=== PATIENT | female | born 1990 | race Caucasian/White ===

== ENCOUNTER 2017-07-05 08:59 | Inpatient (IN) | payer OTHER ==
--- NOTE | 2017-07-05 09:31 | PCM.LDHP ---
<Elmo Dinh L - Last Filed: 07/05/17 09:40> L&D History of Present Illness - General Admit Problem/Dx: Admission Diagnosis/Problem Admission Diagnosis/Problem DATE OF ADMISSION: 07/05/2017 ADMISSION DIAGNOSES: A 40 and 2/7ths weeks, elective induction of labor HISTORY OF PRESENT ILLNESS: This patient is a 26 year old, 3, para 1-0-1-1 female who was admitted at 40 and 2/7ths weeks gestational age with an MARY of 07/03/2017 for elective induction of labor. Uneventful with no complaints today. 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 The patient has an MARY of 07/05/2017 based on a certain LMP of 09/26/2016 and confirmed by early U/S dating. Consistent with 21 week U/S performed on 02/16/2017. The patient was first seen for care on 12/09/2016 at 10 and 5/7ths weeks gestational age. She was seen on a regular basis by Dr. Mcknight throughout the duration of the . She started with a weight of 147 pounds at her first visit and last recorded weight of 187 pounds, resulting in a weight gain of approximately 40 pounds. Her vital signs have remained stable throughout the and fundal height growth has been appropriate. She plans on breast feeding. She is group B Strep negative. PAST OBSTETRIC HISTORY: 1. Female born on [birth year] at 40 weeks gestational age - 7 pounds, 8 ounces - via normal spontaneous vaginal delivery with the use of an epidural. 2. Therapeutic in 11/2013 LABORATORY TESTING: Initial testing shows blood to be B positive with a negative antibody screen. Hemoglobin at first visit was 12.4 g/dL and platelets at 198,000. Rubella titer showed immunity. RPR nonreactive. HIV and Hepatitis B assays were both negative. Chlamydia and gonorrhea assays were both negative. Urine culture was normal. Second trimester testing showed hemoglobin to be 12.8 g/dL and platelets at 179,000. Her 1 hour GGT was normal at 91. Group B Strep screen was negative. ALLERGIES: Macrobid - resulting in hives CURRENT MEDICATIONS: 1. vitamins x1 daily 2. Iron supplements x1 daily PAST MEDICAL HISTORY: 1. Vaginal delivery x1 PAST SURGICAL HISTORY: 1. Corrective strabismus surgery x3 FAMILY HISTORY: Mother has a history of endometrial cancer. Father is healthy. MGF has a history of colorectal cancer. SOCIAL HISTORY: The patient is . is Guy Yu. They live in [place], [place]. 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 She does not use alcohol, drugs, or tobacco. REVIEW OF SYSTEMS: GENERAL: Patient doing well and states this has been an easy . Baby has been very active. SKIN: Negative. CARDIOVASCULAR: No chest pain or exercise intolerance. RESPIRATORY: No shortness of breath or cough. BREASTS: Changes associated with . Patient plans to breast feed. GASTROINTESTINAL: Some constipation throughout , but not experiencing any today. GENITOURINARY: Changes associated with . MUSCULOSKELETAL: Negative. NEUROLOGIC: Negative. PHYSICAL EXAMINATION: GENERAL: Patient is a well-developed, well-nourished, pleasant female who appears her stated age. She is in no acute distress. VITAL SIGNS: Blood pressures on last evaluation in the clinic were 122/66. heart rate was 150 bpm. Height is 5 feet, 4 inches. Weight is 187 after a weight gain of 40 pounds throughout the . SKIN: Warm and dry without lesions. HEENT, NECK, BACK: Within normal limits. CARDIOVASCULAR: Regular rate and rhythm without murmurs. RESPIRATORY: Clear with good breath sounds in all lung [place]. BREASTS: Deferred at this time. ABDOMEN: Protuberant with with appropriate fundal height. Baby is in vertex presentation by Jacky maneuvers. GENITAL: Shows cervix to be 2 cm, 30% effaced, soft, -4 station, and posterior position. EXTREMITIES: Shows trace edema to be present. NEUROLOGIC: Grossly within normal limits. ASSESSMENT: 1. A 40 and 2/7ths week intrauterine who presents to L and D for elective induction of labor. 2. Rubella titer shows immunity. 3. Group B Strep screen is negative. 4. The patient plans to breastfeed. PLAN: 1. Cytotec with placement of a lainez bulb to enhance cervical dilation, followed by artificial rupture of membranes and Pitocin induction of labor. 2. Notify anesthesia for placement of an epidural when desired by the patient. 3. Support decision. 07/05/17 09:41 - Related Data Allergies/Adverse Reactions: Allergies Allergy/AdvReac Type Severity Reaction Status Date / Time No Known Allergies Allergy Verified 07/05/17 09:08 H&P Review of Systems - Review of Systems: Review Of Systems: See Below L&D Exam - Exam Exam: See Below - Vital Signs Weight: 84.822 kg Problem List Initiated/Reviewed/Updated: Yes <Ramon Yu - Last Filed: 07/05/17 10:31> L&D History of Present Illness - General Date of Service: 07/05/17 Admit Problem/Dx: Patient Status Order with Admit Dx/Problem 07/05/17 10:17 Patient Status [ADT] Routine Admission Diagnosis/Problem Admission Diagnosis/Problem H&P Review of Systems - Review of Systems: Review Of Systems: See Below General: Denies: Fever, Chills, Malaise, Weakness, Fatigue HEENT: Denies: Sinus Congestion, Sore Throat, Visual Changes Pulmonary: Denies: Shortness of Breath, Wheezing Cardiovascular: Denies: Chest Pain, Palpitations Gastrointestinal: Reports: Constipation. Denies: Abdominal Pain, Diarrhea, Nausea, Vomiting Genitourinary: Denies: Dysuria, Frequency, Burning, Pain Musculoskeletal: Reports: Back Pain. Denies: Joint Pain, Muscle Pain Psychiatric: Denies: Depression Neurological: Denies: Headache Hematologic/Lymphatic: Denies: Anemia L&D Exam - Exam Exam: See Below - OB Specific Contraction Duration (sec): 0 Contraction Frequency (min): 0 Movement: Active Heart Tones: Present Heart Tones per Min: 125 (Has a 15 x 15 accelerations, no decelerations) Heart Rate (FHR) Variability: Moderate (6-25 bmp) Presentation: Vertex - Pugh Score Pugh Score Cervix Position: Posterior Pugh Score Consistency: Soft Pugh Score Effacement: 0-30% Pugh Score Dilation: 1-2 cm Pugh Score Infant's Station: -3 Pugh Score Total: 3 - Exam General: Alert, Oriented HEENT: Conjunctiva Clear, EOMI Neck: Supple, Trachea Midline Lungs: Clear to Auscultation, Normal Respiratory Effort Cardiovascular: Regular Rate, Regular Rhythm GI/Abdominal Exam: Soft, Non-Tender, No Distention. No: Guarding, Rebound Genitourinary: Normal external exam Back Exam: Normal Inspection. No: CVA Tenderness (L), CVA Tenderness (R) Extremities: Normal Inspection, No Pedal Edema Skin: Warm, Dry, Intact Psychiatric: Alert, Normal Affect, Normal Mood - Problem List (1) 40 weeks gestation of SNOMED Code(s): 35750697 ICD Code: Z3A.40 - 40 WEEKS GESTATION OF Status: Acute Current Visit: Yes Problem List Initiated/Reviewed/Updated: Yes Orders Last 24hrs: Active Orders 24 hr Category Date Time Status Patient Status [ADT] Routine ADT 07/05/17 10:17 Active Activity as Tolerated [RC] PFP Care 07/05/17 10:17 Active Communication Order [RC] ASDIRECTED Care 07/05/17 10:17 Active Heart Tones [RC] ASDIRECTED Care 07/05/17 10:17 Active Notify Provider [RC] PFP Care 07/05/17 10:17 Active Notify Provider [RC] PRN Care 07/05/17 10:17 Active Peripheral IV Care [RC] . DIRECTED Care 07/05/17 10:17 Active Vital Signs [RC] PER UNIT ROUTINE Care 07/05/17 10:17 Active Regular Diet [DIET] Diet 07/05/17 Breakfast Active CBC WITH AUTO DIFF [HEME] Stat Lab 07/05/17 10:17 Ordered Lactated Ringers [Ringers, Lactated] 1,000 ml Med 07/05/17 10:30 Active IV ASDIRECTED Misoprostol [Cytotec] Med 07/05/17 10:30 Active 25 mcg VAG Q3H Oxytocin/Lactated Ringers [Pitocin in LR 10 Units/1,000 Med 07/05/17 10:30 Active ML] 10 unit in 1,000 ml IV .CONTINUOUS Oxytocin/Lactated Ringers [Pitocin in LR 10 Units/1,000 Med 07/05/17 10:30 Active ML] 10 unit in 1,000 ml IV TITRATE Sodium Chloride 0.9% [Saline Flush] Med 07/05/17 10:17 Active 10 ml FLUSH ASDIRECTED PRN Electronic Heart Tones Ext w TOCO [WOMSER] Oth 07/05/17 10:17 Ordered Routine Electronic Heart Tones Internal [WOMSER] Per Unit Oth 07/05/17 10:17 Ordered Routine Peripheral IV Insertion Adult [OM.PC] Routine Oth 07/05/17 10:17 Ordered Resuscitation Status Routine Resus Stat 07/05/17 10:17 Ordered Medication Orders Lactated Ringer's (Ringers, Lactated) 1,000 mls @ 100 mls/hr IV ASDIRECTED GABRIEL Oxytocin/Lactated Ringer's (Pitocin In Lr 10 Units/1,000 Ml) 10 unit in 1,000 mls @ 12 mls/hr IV TITRATE GABRIEL; Protocol Oxytocin/Lactated Ringer's (Pitocin In Lr 10 Units/1,000 Ml) 10 unit in 1,000 mls @ 500 mls/hr IV .CONTINUOUS GABRIEL Misoprostol (Cytotec) 25 mcg VAG Q3H GABRIEL Sodium Chloride (Saline Flush) 10 ml FLUSH ASDIRECTED PRN PRN Reason: Keep Vein Open Assessment/Plan Comment:: ASSESSMENT: 1. A 40 and 2/7ths week intrauterine who presents to L and D for elective induction of labor. 2. Rubella titer shows immunity. 3. Group B Strep screen is negative. 4. The patient plans to breastfeed. PLAN: 1. Cytotec with placement of a lainez bulb to enhance cervical dilation, followed by artificial rupture of membranes and Pitocin induction of labor. 2. Notify anesthesia for placement of an epidural when desired by the patient. 3. Support decision. I have seen and evaluated the patient with the student. I agree with the above note and plan. Ramon Yu M.D. 10:30 AM 07/05/2017
[2017-07-05] MEDS ORDERED: Sodium Chloride 0.9% 10 ML Syringe FLUSH PRN (10:17)
[2017-07-05] MEDS ORDERED: Oxytocin/Lactated Ringers 10 UNIT/1,000 ML BAG IV SCH ×3 (10:30→22:15)
[2017-07-05] MEDS: Misoprostol 25 MCG (1/4 of 100 MCG) Tab VAG SCH ×2 (10:34→15:15)
[2017-07-05] MEDS: Lactated Ringers 1,000 ML IV SCH ×4 (13:26→19:07)
[2017-07-05] MEDS ORDERED: fentaNYL 100 MCG/2 ML SDV EPIDUR PRN (15:04)
[2017-07-05] MEDS ORDERED: ePHEDrine 50 MG/ML SDV IVPUSH PRN (15:04)
[2017-07-05] MEDS ORDERED: diphenhydrAMINE 50 MG/ML SDV IVPUSH PRN (15:04)
[2017-07-05] MEDS ORDERED: Bupivacaine/fentaNYL/NS 100 ML Bag EPIDUR SCH (15:15)
[2017-07-05] MEDS ORDERED: fentaNYL 100 MCG/2 ML SDV ONE (15:17)
--- NOTE | 2017-07-05 15:44 | PCM.PREANE ---
Preanesthetic Assessment - Anesthesia/Transfusion/Family Hx Anesthesia History: Prior Anesthesia Without Reaction Family History of Anesthesia Reaction: No Transfusion History: No Prior Transfusion(s) - Review of Systems General: No Symptoms Pulmonary: No Symptoms Cardiovascular: No Symptoms Gastrointestinal: No Symptoms Neurological: No Symptoms Other: Reports: None - Physical Assessment O2 Sat by Pulse Oximetry: 96 Respiratory Rate: 16 Vital Signs: Last Vital Signs Temp 97.9 F 07/05/17 09:15 Pulse 83 07/05/17 09:15 Resp 16 07/05/17 09:15 BP 134/73 07/05/17 09:15 Pulse Ox 96 07/05/17 09:15 Height: 5 ft 4 in Weight: 84.822 kg ASA Class: 2 Mental Status: Alert & Oriented x3 Airway Class: Mallampati = 1 Dentition: Reports: Normal Dentition Thyro-Mental Finger Breadths: 3 Mouth Opening Finger Breadths: 3 ROM/Head Extension: Full Lungs: Clear to Auscultation, Normal Respiratory Effort Cardiovascular: Regular Rate, Regular Rhythm - Lab Values: Laboratory Last Values WBC 7.87 K/mm3 (3.98-10.04) 07/05/17 10:33 RBC 4.39 M/mm3 (3.98-5.22) 07/05/17 10:33 Hgb 14.0 gm/L (11.2-15.7) 07/05/17 10:33 Hct 40.2 % (34.1-44.9) 07/05/17 10:33 MCV 91.6 fl (79.4-94.8) 07/05/17 10:33 MCH 31.9 pg (25.6-32.2) 07/05/17 10:33 MCHC 34.8 g/dl (32.2-35.5) 07/05/17 10:33 RDW Std Deviation 43.3 fL (36.4-46.3) 07/05/17 10:33 Plt Count 178 K/mm3 (182-369) L 07/05/17 10:33 MPV 10.7 fl (9.4-12.3) 07/05/17 10:33 Neut % (Auto) 79.3 % (34.0-71.1) H 07/05/17 10:33 Lymph % (Auto) 12.5 % (19.3-51.7) L 07/05/17 10:33 [place] % (Auto) 7.2 % (4.7-12.5) 07/05/17 10:33 Eos % (Auto) 0.4 (0.7-5.8) L 07/05/17 10:33 Baso % (Auto) 0.3 % (0.1-1.2) 07/05/17 10:33 Neut # (Auto) 6.25 K/mm3 (1.56-6.13) H 07/05/17 10:33 Lymph # (Auto) 0.98 K/mm3 (1.18-3.74) L 07/05/17 10:33 [place] # (Auto) 0.57 K/mm3 (0.24-0.36) H 07/05/17 10:33 Eos # (Auto) 0.03 K/mm3 (0.04-0.36) L 07/05/17 10:33 Baso # (Auto) 0.02 K/mm3 (0.01-0.08) 07/05/17 10:33 - Allergies Allergies/Adverse Reactions: Allergies Allergy/AdvReac Type Severity Reaction Status Date / Time No Known Allergies Allergy Verified 07/05/17 09:08 - Blood Blood Available: No - Acknowledgements Anesthesia Type Planned: Epidural Pt an Appropriate Candidate for the Planned Anesthesia: Yes Alternatives and Risks of Anesthesia Discussed w Pt/Guardian: Yes Pt/Guardian Understands and Agrees with Anesthesia Plan: Yes PreAnesthesia Questionnaire - Past Health History Medical/Surgical History: Denies Medical/Surgical History Cardiovascular History: Reports: None Respiratory History: Reports: None Gastrointestinal History: Reports: GERD (with preg) 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 - SUBSTANCE USE Smoking Status *Q: Former Smoker (quit years ago) Tobacco Use Within Last Twelve Months: No Second Hand Smoke Exposure: No Days Per Week of Alcohol Use: 0 Recreational Drug Use History: No - HOME MEDS Home Medications: Home Meds PNV95/Ferrous Fumarate/FA [ Tablet] 1 tab PO DAILY 07/05/17 [History] - CURRENT (IN HOUSE) MEDS Current Meds: Current Medications Diphenhydramine HCl (Benadryl) 25 mg IVPUSH Q6H PRN PRN Reason: pruritis Ephedrine Sulfate (Ephedrine Sulfate) 5 mg IVPUSH ASDIRECTED PRN PRN Reason: Hypotension Fentanyl (Sublimaze) 100 mcg EPIDUR Q3H PRN PRN Reason: Pain Last Admin: 07/05/17 15:40 Dose: 100 mcg Fentanyl/Bupivacaine HCl (Fentanyl/Bupivacaine/Ns 2 Mcg-0.125% 100 Ml) 100 ml EPIDUR ASDIRECTED GABRIEL Last Admin: 07/05/17 15:39 Dose: 100 ml Lactated Ringer's (Ringers, Lactated) 1,000 mls @ 100 mls/hr IV ASDIRECTED GABRIEL Last Admin: 07/05/17 13:26 Dose: 100 mls/hr Oxytocin/Lactated Ringer's (Pitocin In Lr 10 Units/1,000 Ml) 10 unit in 1,000 mls @ 12 mls/hr IV TITRATE GABRIEL; Protocol Last Admin: 07/05/17 13:26 Dose: 2 munits/min, 12 mls/hr Oxytocin/Lactated Ringer's (Pitocin In Lr 10 Units/1,000 Ml) 10 unit in 1,000 mls @ 500 mls/hr IV .CONTINUOUS GABRIEL Sodium Chloride (Saline Flush) 10 ml FLUSH ASDIRECTED PRN PRN Reason: Keep Vein Open Discontinued Medications Fentanyl (Sublimaze) Confirm Administered Dose 100 mcg .ROUTE .STK-MED ONE Stop: 07/05/17 15:18 Misoprostol (Cytotec) 25 mcg VAG Q3H GABRIEL Last Admin: 07/05/17 15:15 Dose: Not Given
[2017-07-05] MEDS ORDERED: Bupivacaine 0.25% 10 ML SDV ONE (16:00)
--- NOTE | 2017-07-05 17:15 | PCM.PNLD ---
Labor Progress Note - VS & Meds Vital Signs: Last Vital Signs Temp 36.6 C 07/05/17 09:15 Pulse 83 07/05/17 09:15 Resp 16 07/05/17 15:43 BP 134/73 07/05/17 09:15 Pulse Ox 96 07/05/17 15:43 Active Medications: Current Medications Diphenhydramine HCl (Benadryl) 25 mg IVPUSH Q6H PRN PRN Reason: pruritis Ephedrine Sulfate (Ephedrine Sulfate) 5 mg IVPUSH ASDIRECTED PRN PRN Reason: Hypotension Fentanyl (Sublimaze) 100 mcg EPIDUR Q3H PRN PRN Reason: Pain Last Admin: 07/05/17 15:40 Dose: 100 mcg Fentanyl/Bupivacaine HCl (Fentanyl/Bupivacaine/Ns 2 Mcg-0.125% 100 Ml) 100 ml EPIDUR ASDIRECTED GABRIEL Last Admin: 07/05/17 15:39 Dose: 100 ml Lactated Ringer's (Ringers, Lactated) 1,000 mls @ 100 mls/hr IV ASDIRECTED GABRIEL Last Admin: 07/05/17 15:20 Dose: 100 mls/hr Oxytocin/Lactated Ringer's (Pitocin In Lr 10 Units/1,000 Ml) 10 unit in 1,000 mls @ 12 mls/hr IV TITRATE GABRIEL; Protocol Last Titration: 07/05/17 15:57 Dose: 4 munits/min, 24 mls/hr Oxytocin/Lactated Ringer's (Pitocin In Lr 10 Units/1,000 Ml) 10 unit in 1,000 mls @ 500 mls/hr IV .CONTINUOUS GABRIEL Sodium Chloride (Saline Flush) 10 ml FLUSH ASDIRECTED PRN PRN Reason: Keep Vein Open Discontinued Medications Fentanyl (Sublimaze) Confirm Administered Dose 100 mcg .ROUTE .STK-MED ONE Stop: 07/05/17 15:18 Last Admin: 07/05/17 15:54 Dose: Not Given Misoprostol (Cytotec) 25 mcg VAG Q3H GABRIEL Last Admin: 07/05/17 15:15 Dose: Not Given - Uterine Contractions Uterine Monitoring Mode: External [place] Contraction Frequency (min): 2-5 Contraction Duration (sec): 45-60 Contraction Intensity: Moderate to Strong Uterine Resting Tone: Soft - Monitoring Monitor Mode: Doppler/Auscultation Heart Rate (FHR) Baseline: 115 Heart Rate (FHR) Variability: Moderate (6-25 bmp) Accelerations: Present, 15x15 Decelerations: Early, Intermittent (<50% x 20 min) Strip Review: Category I - Vaginal Exam Dilation (cm): 6 Effacement (Percent): 80 Station: -3 Cervical Position: Anterior Sterile Vaginal Exam Performed By: Ramon Yu - Labor Progress (Free Text) Labor Progress: Continuing to progress well. Artificial rupture of membranes with return of clear fluid. Mother and baby tolerated without difficulty. Continue monitoring Continue pitocin for augmentation Epidural in place for anesthesia Anticipate vaginal delivery unless otherwise indicated. Ramon Yu MD 5:14 PM 07/05/2017
[2017-07-05] MEDS ORDERED: Calcium Carbonate 500 MG Tab.Chew PO ONE (20:26)
[2017-07-05] MEDS ORDERED: Lidocaine 1% 50 ML MDV ONE (21:39)
[2017-07-05] MEDS ORDERED: Lidocaine 1% PF 2 ML SDV INJECT ONE (21:44)
[2017-07-05] MEDS ORDERED: Benzocaine/Menthol 20%-0.5% Spray 56 GM Canister TOP PRN (22:14)
[2017-07-05] MEDS ORDERED: Lanolin 100% Cream 7 GM Tube TOP PRN (22:14)
[2017-07-05] MEDS ORDERED: Acetaminophen 325 MG Tab PO PRN (22:14)
[2017-07-05] MEDS ORDERED: Hydrocortisone Acetate 25 MG Supp RECTAL PRN (22:14)
[2017-07-05] MEDS ORDERED: Docusate Sodium 100 MG Cap PO PRN (22:14)
[2017-07-05] MEDS ORDERED: Witch Hazel Medicated Pads 100/Jar TOP PRN (22:14)
[2017-07-05] MEDS ORDERED: Magnesium Hydroxide 400 MG/5 ML Susp 30 ML Cup PO PRN (22:14)
[2017-07-05] MEDS ORDERED: Lactated Ringers 1,000 ML IV SCH (22:15)
--- NOTE | 2017-07-05 22:22 | PCM.DEL ---
L & D Note - General Info Date of Service: 07/05/17 Mother's Due Date: 07/03/17 - Delivery Note Labor: Augmented by Oxytocin Cervical Ripening Method: Balloon Device, Misoprostil Delivery Outcome: Livebirth Infant Delivery Method: Spontaneous Vaginal Delivery-Single Presentation: Direct occiput anterior Nuchal Cord: Present (Not reduced) Prep: Povidone-Iodine (Betadine Anesthesia Type: Local, Epidural Anesthetic: Lidocaine (Xylocaine) 1% Plain Local Anesthetic Volume: Other (8cc) Amniotic Fluid Description: Clear Episiotomy Type: None Laceration: 1st Degree, Labial (repaired with 4-0 Vicryl) Suture type: Vicryl Suture size: 4-0 Placenta: Intact, Spontaneous Cord: 3 Vessels Estimated Blood Loss: 300 Resuscitation Needed: Yes [place]: Bulb Syringe, Stimulated, Warmed, [place] Used, Warmer Used Provider: Ronda Mcknight Score 1 min: 8 Score 5 min: 9 Second Stage Interventions: Reports: Pushing Effectively, Pushing, Pulls Own Legs Back Delivery Comments (Free Text/Narrative):: Stage I: Thi Yu was admitted for elective induction of labor. On admission her cervix was dilated to 2 cm. She was GBS negative. She had a Casiano bulb placed with 60 mL of fluid and was given 1 dose of Cytotec 25 mcg vaginally. The Casiano bulb came out on its own. She was transitioned to Pitocin for augmentation of labor. She was given an epidural for anesthesia. She had artificial rupture of membranes with clear fluid. She progressed to complete and pushing. Stage II: On 07/05/2017 she had a normal vaginal delivery of a live male at 2132. Apgars of 8 & 9. Weight and length were unknown at time of this note. There was a single nuchal cord that was not reduced. was delivered in direct OA position. The cord was doubly clamped and cut by father of . was placed on mother's abdomen. had stimulation with the blanket and bulb syringe suctioning of nose and mouth. Stage III: She had a spontaneous delivery of an intact placenta in Flo presentation. Three vessel cord. She was given pitocin and fundal massage. She had a first-degree right labial laceration that was repaired with 4-0 Vicryl in running fashion. Mom and baby were stable to recovery. EBL of 300 mL. Ramon Yu MD 10:18 PM 07/05/2017 - Patient Data Vitals - Most Recent: Last Vital Signs Temp 36.6 C 07/05/17 09:15 Pulse 83 07/05/17 09:15 Resp 16 07/05/17 15:43 BP 134/73 07/05/17 09:15 Pulse Ox 96 07/05/17 15:43 Weight - Most Recent: 84.822 kg I&O - Last 24 Hours: Intake & Output 07/05/17 07/05/17 07/05/17 06:59 14:59 22:59 Intake Total 1700 Balance 1700 Lab Results Last 24 Hours: Laboratory Results - last 24 hr 07/05/17 Range/Units 10:33 WBC 7.87 (3.98-10.04) K/mm3 RBC 4.39 (3.98-5.22) M/mm3 Hgb 14.0 (11.2-15.7) gm/L Hct 40.2 (34.1-44.9) % MCV 91.6 (79.4-94.8) fl MCH 31.9 (25.6-32.2) pg MCHC 34.8 (32.2-35.5) g/dl RDW Std Deviation 43.3 (36.4-46.3) fL Plt Count 178 L (182-369) K/mm3 MPV 10.7 (9.4-12.3) fl Neut % (Auto) 79.3 H (34.0-71.1) % Lymph % (Auto) 12.5 L (19.3-51.7) % [place] % (Auto) 7.2 (4.7-12.5) % Eos % (Auto) 0.4 L (0.7-5.8) Baso % (Auto) 0.3 (0.1-1.2) % Neut # (Auto) 6.25 H (1.56-6.13) K/mm3 Lymph # (Auto) 0.98 L (1.18-3.74) K/mm3 [place] # (Auto) 0.57 H (0.24-0.36) K/mm3 Eos # (Auto) 0.03 L (0.04-0.36) K/mm3 Baso # (Auto) 0.02 (0.01-0.08) K/mm3 Med Orders - Current: Current Medications Diphenhydramine HCl (Benadryl) 25 mg IVPUSH Q6H PRN PRN Reason: pruritis Ephedrine Sulfate (Ephedrine Sulfate) 5 mg IVPUSH ASDIRECTED PRN PRN Reason: Hypotension Fentanyl (Sublimaze) 100 mcg EPIDUR Q3H PRN PRN Reason: Pain Last Admin: 07/05/17 15:40 Dose: 100 mcg Fentanyl/Bupivacaine HCl (Fentanyl/Bupivacaine/Ns 2 Mcg-0.125% 100 Ml) 100 ml EPIDUR ASDIRECTED GABRIEL Last Admin: 07/05/17 15:39 Dose: 100 ml Lactated Ringer's (Ringers, Lactated) 1,000 mls @ 100 mls/hr IV ASDIRECTED GABRIEL Last Admin: 07/05/17 19:07 Dose: 100 mls/hr Oxytocin/Lactated Ringer's (Pitocin In Lr 10 Units/1,000 Ml) 10 unit in 1,000 mls @ 12 mls/hr IV TITRATE GBARIEL; Protocol Last Titration: 07/05/17 21:32 Dose: 0 munits/min, 0 mls/hr Oxytocin/Lactated Ringer's (Pitocin In Lr 10 Units/1,000 Ml) 10 unit in 1,000 mls @ 500 mls/hr IV .CONTINUOUS GABRIEL Sodium Chloride (Saline Flush) 10 ml FLUSH ASDIRECTED PRN PRN Reason: Keep Vein Open Discontinued Medications Calcium Carbonate/Glycine (Tums) 1,000 mg PO ONETIME ONE Stop: 07/05/17 20:27 Last Admin: 07/05/17 20:18 Dose: 1,000 mg Fentanyl (Sublimaze) Confirm Administered Dose 100 mcg .ROUTE .STK-MED ONE Stop: 07/05/17 15:18 Last Admin: 07/05/17 15:54 Dose: Not Given Lidocaine HCl (Xylocaine 1%) Confirm Administered Dose 50 ml .ROUTE .STK-MED ONE Stop: 07/05/17 21:40 Last Admin: 07/05/17 21:45 Dose: Not Given Lidocaine HCl (Xylocaine-Mpf 1%) 10 ml INJECT ONETIME ONE Stop: 07/05/17 21:45 Last Admin: 07/05/17 21:54 Dose: 10 ml Misoprostol (Cytotec) 25 mcg VAG Q3H GABRIEL Last Admin: 07/05/17 15:15 Dose: Not Given - Problem List & Annotations (1) 40 weeks gestation of SNOMED Code(s): 00746790 Code(s): Z3A.40 - 40 WEEKS GESTATION OF Status: Acute Current Visit: Yes (2) Vaginal delivery SNOMED Code(s): 289297798 Code(s): O80 - ENCOUNTER FOR FULL-TERM UNCOMPLICATED DELIVERY Status: Acute Current Visit: Yes (3) First degree laceration of perineum, delivered, current hospitalization SNOMED Code(s): 222946454 Code(s): O70.0 - FIRST DEGREE PERINEAL LACERATION DURING DELIVERY Status: Acute Current Visit: Yes - Problem List Review Problem List Initiated/Reviewed/Updated: Yes - My Orders Last 24 Hours: My Active Orders 07/05/17 10:17 Patient Status [ADT] Routine Activity as Tolerated [RC] PFP Communication Order [RC] ASDIRECTED Heart Tones [RC] ASDIRECTED Notify Provider [RC] PFP Notify Provider [RC] PRN Peripheral IV Care [RC] . DIRECTED Vital Signs [RC] PER UNIT ROUTINE Sodium Chloride 0.9% [Saline Flush] 10 ml FLUSH ASDIRECTED PRN Electronic Heart Tones Ext w TOCO [WOMSER] Routine Electronic Heart Tones Internal [WOMSER] Per Unit Routine Peripheral IV Insertion Adult [OM.PC] Routine Resuscitation Status Routine 07/05/17 10:30 Lactated Ringers [Ringers, Lactated] 1,000 ml IV ASDIRECTED Oxytocin/Lactated Ringers [Pitocin in LR 10 Units/1,000 ML] 10 unit in 1,000 ml IV .CONTINUOUS Oxytocin/Lactated Ringers [Pitocin in LR 10 Units/1,000 ML] 10 unit in 1,000 ml IV TITRATE 07/05/17 22:08 Patient Status Manage Transfer [TRANSFER] Routine 07/05/17 Breakfast Regular Diet [DIET] - Plan Plan:: Admit to inpatient following normal spontaneous vaginal delivery Monitor vital signs Regular diet Continue lactated Ringer's and Pitocin per unit protocol following delivery of placenta May discontinue IV per unit protocol assist with breast-feeding as needed Anticipate discharge home on day #1 or 2 Ramon Yu M.D. 10:30 AM 07/05/2017
[2017-07-05] MEDS: Ibuprofen 600 MG Tab PO PRN (22:48)
[2017-07-06] MEDS: Ibuprofen 600 MG Tab PO PRN ×3 (06:00→19:29)
[2017-07-06] MEDS ORDERED: Prenatal Multivitamin with Calcium/Folic Acid/Iron Tab PO SCH (09:00)
--- NOTE | 2017-07-06 12:07 | PCM48HPAN ---
Post Anesthesia Note - EVALUATION WITHIN 48HRS OF ANESTHETIC Vital Signs in Normal Range: Yes Patient Participated in Evaluation: Yes Respiratory Function Stable: Yes Airway Patent: Yes Cardiovascular Function Stable: Yes Hydration Status Stable: Yes Pain Control Satisfactory: Yes Nausea and Vomiting Control Satisfactory: Yes Mental Status Recovered: Yes
--- NOTE | 2017-07-06 20:56 | PCM.SN ---
- Free Text/Narrative Note: Post Progress Note PPD # 1 Subjective: Doing well overall. Ambulating without difficulty. Lochia minimal. Voiding without difficulty. Tolerating regular diet without nausea or vomiting. Pain controlled with oral medications. Breast feeding with minimal difficulty. Objective: Vitals: Vital Signs - 24 hr 07/06/17 07/06/17 07/06/17 03:50 04:00 12:46 Temperature 36.4 C Temperature [ 36.8 C Temporal] Pulse, 79 109 H Peripheral Respiratory 16 15 Rate Blood Pressure 110/54 L 115/64 O2 Sat by Pulse 98 100 Oximetry Physical Exam General: Alert and oriented, no acute distress Lungs: Clear to auscultation bilaterally Heart: Regular rate and rhythm Abdomen: Soft, minimal appropriate tenderness, non-distended, fundus midline, nontender, and below the umbilicus Extremities: 1+ edema ASSESSMENT: 26-year-old female s/p normal vaginal delivery PPD #1, uncomplicated PLAN: Doing well Breast feeding with minimal difficulty. Assist as needed Lochia minimal. Continue to monitor for appropriate lochia. Continue routine care Anticipate discharge home today Ramon Yu MD 10:08 AM 07/06/2017
--- NOTE | 2017-07-06 20:59 | PCM.DCSUM1 ---
Discharge Summary - Hospital Course Free Text/Narrative:: Stage I: Thi Yu was admitted for elective induction of labor. On admission her cervix was dilated to 2 cm. She was GBS negative. She had a Casiano bulb placed with 60 mL of fluid and was given 1 dose of Cytotec 25 mcg vaginally. The Casiano bulb came out on its own. She was transitioned to Pitocin for augmentation of labor. She was given an epidural for anesthesia. She had artificial rupture of membranes with clear fluid. She progressed to complete and pushing. Stage II: On 07/05/2017 she had a normal vaginal delivery of a live male at 2132. Apgars of 8 & 9. Weight and length were unknown at time of this note. There was a single nuchal cord that was not reduced. Infant was delivered in direct OA position. The cord was doubly clamped and cut by father of infant. Infant was placed on mother's abdomen. had stimulation with the blanket and bulb syringe suctioning of nose and mouth. Stage III: She had a spontaneous delivery of an intact placenta in Flo presentation. Three vessel cord. She was given pitocin and fundal massage. She had a first-degree right labial laceration that was repaired with 4-0 Vicryl in running fashion. Mom and baby were stable to recovery. EBL of 300 mL. HPI Initial Comments: Stage I: Thi Yu was admitted for elective induction of labor. On admission her cervix was dilated to 2 cm. She was GBS negative. She had a Casiano bulb placed with 60 mL of fluid and was given 1 dose of Cytotec 25 mcg vaginally. The Casiano bulb came out on its own. She was transitioned to Pitocin for augmentation of labor. She was given an epidural for anesthesia. She had artificial rupture of membranes with clear fluid. She progressed to complete and pushing. Stage II: On 07/05/2017 she had a normal vaginal delivery of a live male at 2132. Apgars of 8 & 9. Weight and length were unknown at time of this note. There was a single nuchal cord that was not reduced. Infant was delivered in direct OA position. The cord was doubly clamped and cut by father of infant. Infant was placed on mother's abdomen. Infant had stimulation with the blanket and bulb syringe suctioning of nose and mouth. Stage III: She had a spontaneous delivery of an intact placenta in Flo presentation. Three vessel cord. She was given pitocin and fundal massage. She had a first-degree right labial laceration that was repaired with 4-0 Vicryl in running fashion. Mom and baby were stable to recovery. EBL of 300 mL. Brief History: Stage I: Thi Yu was admitted for elective induction of labor. On admission her cervix was dilated to 2 cm. She was GBS negative. She had a Casiano bulb placed with 60 mL of fluid and was given 1 dose of Cytotec 25 mcg vaginally. The Casiano bulb came out on its own. She was transitioned to Pitocin for augmentation of labor. She was given an epidural for anesthesia. She had artificial rupture of membranes with clear fluid. She progressed to complete and pushing. Stage II: On 07/05/2017 she had a normal vaginal delivery of a live male infant at 2132. Apgars of 8 & 9. Weight and length were unknown at time of this note. There was a single nuchal cord that was not reduced. was delivered in direct OA position. The cord was doubly clamped and cut by father of infant. Infant was placed on mother's abdomen. had stimulation with the blanket and bulb syringe suctioning of nose and mouth. Stage III: She had a spontaneous delivery of an intact placenta in Flo presentation. Three vessel cord. She was given pitocin and fundal massage. She had a first-degree right labial laceration that was repaired with 4-0 Vicryl in running fashion. Mom and baby were stable to recovery. EBL of 300 mL. - Discharge Data Discharge Date: 07/06/17 Discharge Disposition: Home, Self-Care 01 Condition: Good - Discharge Diagnosis/Problem(s) (1) 40 weeks gestation of SNOMED Code(s): 73495041 ICD Code: Z3A.40 - 40 WEEKS GESTATION OF Status: Acute (2) Vaginal delivery SNOMED Code(s): 514471370 ICD Code: O80 - ENCOUNTER FOR FULL-TERM UNCOMPLICATED DELIVERY Status: Acute (3) First degree laceration of perineum, delivered, current hospitalization SNOMED Code(s): 988642055 ICD Code: O70.0 - FIRST DEGREE PERINEAL LACERATION DURING DELIVERY Status: Acute - Patient Summary/Data Complications: None Consults: None Hospital Course: Thi Yu was admitted for elective induction of labor. She was GBS negative. On arrival she was dilated to 2 cm. She had a Casiano bulb placed with 60 mL of fluid and was given 1 dose of Cytotec 25 mcg vaginally. The Casiano bulb came out on its own. She was transitioned to Pitocin for augmentation of labor. She was given an epidural for anesthesia. She had artificial rupture of membranes with clear fluid. She progressed to complete and pushing. On 2017 she had a normal vaginal delivery of a live female infant at 2132. Apgars of 8 & 9. Weight of 3480 g (7 lbs. 10.8 oz). Her course was uneventful. Her pain was well controlled and she had minimal lochia. She was ambulating, tolerating a regular diet and voiding normally. She was breast feeding. She was afebrile and her hematocrit was 40.2 on admission. She desired to be discharged home on the morning of PPD #1. Her blood type is B positive. - Patient Instructions Diet: Regular Diet as Tolerated Activity: As Tolerated Activity, Other: Nothing in the vagina for 6 weeks Driving: May Drive Today Showering/Bathing: May Shower Notify Provider of: Fever, Increased Pain, Swelling and Redness, Drainage, Nausea and/or Vomiting Other/Special Instructions: Please call physician's office if having heavy vaginal bleeding enough to soak a pad in less than an hour for 2-3 hours. - Discharge Plan Home Medications: Home Meds PNV95/Ferrous Fumarate/FA [ Tablet] 1 tab PO DAILY 07/05/17 [History] Acetaminophen [Tylenol] 650 mg PO Q6H PRN tablet 07/06/17 [Rx] Benzocaine/Menthol [Dermoplast Pain Relief [place]] 1 spray TOP ASDIRECTED PRN canister 07/06/17 [Rx] Docusate Sodium [Colace] 100 mg PO BID PRN cap 07/06/17 [Rx] Hydrocortisone Acetate [Anucort-HC] 25 mg RECTAL BID PRN supp 07/06/17 [Rx] Ibuprofen [IJD: Ibuprofen] 600 mg PO Q6H PRN tablet 07/06/17 [Rx] Lanolin [Lansinoh HPA] 1 applic TOP ASDIRECTED PRN tube 07/06/17 [Rx] Magnesium Hydroxide [Milk of Magnesia] 30 ml PO BEDTIME PRN cup 07/06/17 [Rx] Patient Handouts: Home Care Instructions for Mom, Vaginal Delivery, Care After , Challenges and Solutions, Care of a Perineal Tear Referrals: Ronda Mcknight MD [Primary Care Provider] - (Follow-up in 6 weeks or earlier as needed for routine visit.) - Discharge Summary/Plan Comment DC Time >30 min.: No - Patient Data Vitals - Most Recent: Last Vital Signs Temp 36.7 C 07/06/17 19:32 Pulse 82 07/06/17 19:32 Resp 16 07/06/17 19:32 BP 112/64 07/06/17 19:32 Pulse Ox 95 07/06/17 19:32 Weight - Most Recent: 84.822 kg I&O - Last 24 hours: Intake & Output 07/06/17 07/06/17 07/06/17 06:59 14:59 22:59 Intake Total 1000 120 Balance 1000 120 Med Orders - Current: Current Medications Acetaminophen (Tylenol) 650 mg PO Q6H PRN PRN Reason: mild pain or fever Last Admin: 07/06/17 09:00 Dose: 650 mg Benzocaine/Menthol (Dermoplast Pain Relief [place]) 0 gm TOP ASDIRECTED PRN PRN Reason: Perineal Comfort Measure Last Admin: 07/05/17 22:48 Dose: 1 applic Docusate Sodium (Colace) 100 mg PO BID PRN PRN Reason: Constipation Last Admin: 07/06/17 09:00 Dose: 100 mg Emollient Ointment (Lansinoh Hpa) 0 gm TOP ASDIRECTED PRN PRN Reason: Sore Nipples Hydrocortisone Acetate (Anucort-Hc) 25 mg RECTAL BID PRN PRN Reason: Hemorrhoid pain Lactated Ringer's (Ringers, Lactated) 1,000 mls @ 125 mls/hr IV ASDIRECTED GABRIEL Oxytocin/Lactated Ringer's (Pitocin In Lr 10 Units/1,000 Ml) 10 unit in 1,000 mls @ 100 mls/hr IV TITRATE GABRIEL; Protocol Ibuprofen (Motrin) 600 mg PO Q6H PRN PRN Reason: Mild pain or fever Last Admin: 07/06/17 19:29 Dose: 600 mg Magnesium Hydroxide (Milk Of Magnesia) 30 ml PO BEDTIME PRN PRN Reason: Constipation Prenat Multivit/[place]/Iron/Folic Ac ( Plus Iron) 1 each PO DAILY GABRIEL Last Admin: 07/06/17 09:00 Dose: 1 each Witch Misty (Tucks) 1 pad TOP ASDIRECTED PRN PRN Reason: Hemorrhoid pain Last Admin: 07/05/17 22:48 Dose: 1 applic Discontinued Medications Bupivacaine HCl (Sensorcaine-Mpf 0.25%) 10 ml .ROUTE .STK-MED ONE Stop: 07/05/17 16:01 Calcium Carbonate/Glycine (Tums) 1,000 mg PO ONETIME ONE Stop: 07/05/17 20:27 Last Admin: 07/05/17 20:18 Dose: 1,000 mg Diphenhydramine HCl (Benadryl) 25 mg IVPUSH Q6H PRN PRN Reason: pruritis Ephedrine Sulfate (Ephedrine Sulfate) 5 mg IVPUSH ASDIRECTED PRN PRN Reason: Hypotension Fentanyl (Sublimaze) 100 mcg EPIDUR Q3H PRN PRN Reason: Pain Last Admin: 07/05/17 15:40 Dose: 100 mcg Fentanyl (Sublimaze) Confirm Administered Dose 100 mcg .ROUTE .STK-MED ONE Stop: 07/05/17 15:18 Last Admin: 07/05/17 15:54 Dose: Not Given Fentanyl/Bupivacaine HCl (Fentanyl/Bupivacaine/Ns 2 Mcg-0.125% 100 Ml) 100 ml EPIDUR ASDIRECTED GABRIEL Last Admin: 07/05/17 15:39 Dose: 100 ml Lactated Ringer's (Ringers, Lactated) 1,000 mls @ 100 mls/hr IV ASDIRECTED GABRIEL Last Admin: 07/05/17 19:07 Dose: 100 mls/hr Oxytocin/Lactated Ringer's (Pitocin In Lr 10 Units/1,000 Ml) 10 unit in 1,000 mls @ 12 mls/hr IV TITRATE GABRIEL; Protocol Last Titration: 07/05/17 21:32 Dose: 0 munits/min, 0 mls/hr Oxytocin/Lactated Ringer's (Pitocin In Lr 10 Units/1,000 Ml) 10 unit in 1,000 mls @ 500 mls/hr IV .CONTINUOUS GABRIEL Lidocaine HCl (Xylocaine 1%) Confirm Administered Dose 50 ml .ROUTE .STK-MED ONE Stop: 07/05/17 21:40 Last Admin: 07/05/17 21:45 Dose: Not Given Lidocaine HCl (Xylocaine-Mpf 1%) 10 ml INJECT ONETIME ONE Stop: 07/05/17 21:45 Last Admin: 07/05/17 21:54 Dose: 10 ml Misoprostol (Cytotec) 25 mcg VAG Q3H GABRIEL Last Admin: 07/05/17 15:15 Dose: Not Given Sodium Chloride (Saline Flush) 10 ml FLUSH ASDIRECTED PRN PRN Reason: Keep Vein Open
== END 2017-07-06 21:49 | disposition home or self-care (01) | DRG 775 ==
LOC: JD.OB 08:59 → OBSVTOIN 21:32 → JD.OB 21:33
PROVIDERS: ADMIT Obstetrics & Gynecology; ATTEND Obstetrics & Gynecology
PROC: 10E0XZZ Delivery of Products of Conception, External Approach (ICD-10-PCS; principal; 2017-07-05)
PROC: 0UQMXZZ Repair Vulva, External Approach (ICD-10-PCS; 2017-07-05)
PROC: 10907ZC Drainage of Amniotic Fluid, Therapeutic from Products of Conception, Via Natural or Artificial Opening (ICD-10-PCS; 2017-07-05)
PROC: 3E0P7VZ Introduction of Hormone into Female Reproductive, Via Natural or Artificial Opening (ICD-10-PCS; 2017-07-05)
PROC: 0U7C7ZZ Dilation of Cervix, Via Natural or Artificial Opening (ICD-10-PCS; 2017-07-05)
PROC: 00HU33Z Insertion of Infusion Device into Spinal Canal, Percutaneous Approach (ICD-10-PCS; 2017-07-05)
PROC: 3E0R3BZ Introduction of Anesthetic Agent into Spinal Canal, Percutaneous Approach (ICD-10-PCS; 2017-07-05)
DX: O69.81X0 Labor and delivery complicated by cord around neck, without compression, not applicable or unspecified (principal); O70.0 First degree perineal laceration during delivery; Z3A.40 40 weeks gestation of pregnancy; Z37.0 Single live birth; Z88.1 Allergy status to other antibiotic agents
CPT/HCPCS: 36415; 51702; 59025; 59300; 59409; 85025; A9270-GY; J2590; J3010; J7120

== ENCOUNTER 2019-10-25 07:09 | Inpatient (IN) | payer BC ==
[2019-10-25] MEDS ORDERED: Oxytocin/Lactated Ringers 10 UNIT/1,000 ML BAG IV SCH ×2 (07:30)
[2019-10-25] MEDS ORDERED: Nalbuphine 10 MG/ML Syringe IVPUSH PRN (07:30)
[2019-10-25] MEDS ORDERED: Promethazine 25 MG Tab PO PRN (07:30)
[2019-10-25] MEDS ORDERED: Ondansetron 4 MG/2 ML SDV IVPUSH PRN (07:30)
[2019-10-25] MEDS ORDERED: Sodium Chloride 0.9% 10 ML Syringe FLUSH PRN (07:30)
--- NOTE | 2019-10-25 07:33 | PCM.LDHP ---
L&D History of Present Illness - General Date of Service: 10/25/19 Admit Problem/Dx: Patient Status Order with Admit Dx/Problem 10/25/19 07:30 Patient Status [ADT] Routine Admission Diagnosis/Problem Admission Diagnosis/Problem Normal in third trimester Source of Information: Patient History Limitations: Reports: No Limitations - History of Present Illness Introduction:: Patient is a 28 y/o at 39 2/7 wks who presents for elective IOL. Doing well today. No major concerns or complaints - Related Data Allergies/Adverse Reactions: Allergies Allergy/AdvReac Type Severity Reaction Status Date / Time No Known Allergies Allergy Verified 07/05/17 09:08 Home Medications: Home Meds Pnv No.95/Ferrous Fum/Folic AC [ Tablet] 1 tab PO DAILY 07/05/17 [History] Acetaminophen [Tylenol] 650 mg PO Q6H PRN tablet 07/06/17 [Rx] Benzocaine/Menthol [Dermoplast Pain Relief [place]] 1 spray TOP ASDIRECTED PRN canister 07/06/17 [Rx] Docusate Sodium [Colace] 100 mg PO BID PRN cap 07/06/17 [Rx] Hydrocortisone Acetate [Anucort-HC] 25 mg RECTAL BID PRN supp 07/06/17 [Rx] Ibuprofen [IJD: Ibuprofen] 600 mg PO Q6H PRN tablet 07/06/17 [Rx] Lanolin [Lansinoh HPA] 1 applic TOP ASDIRECTED PRN tube 07/06/17 [Rx] Magnesium Hydroxide [Milk of Magnesia] 30 ml PO BEDTIME PRN cup 07/06/17 [Rx] Past Medical History Gastrointestinal History: Reports: GERD 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 Social & Family History - Family History Family Medical History: Noncontributory - Tobacco Use Smoking Status *Q: Never Smoker - Caffeine Use Caffeine Use: Reports: Coffee - Alcohol Use Alcohol Use History: No - Recreational Drug Use Recreational Drug Use: No H&P Review of Systems - Review of Systems: Review Of Systems: See Below General: Reports: No Symptoms Pulmonary: Reports: No Symptoms Cardiovascular: Reports: No Symptoms Gastrointestinal: Reports: No Symptoms Genitourinary: Reports: No Symptoms Musculoskeletal: Reports: No Symptoms Psychiatric: Reports: No Symptoms Neurological: Reports: No Symptoms L&D Exam - Exam Exam: See Below - OB Specific Contraction Intensity: Irritability Movement: Active Heart Tones: Present Heart Tones per Min: 140 Heart Rate (FHR) Variability: Moderate (6-25 bmp) Presentation: Vertex - Pugh Score Pugh Score Cervix Position: Midposition Pugh Score Consistency: Soft Pugh Score Effacement: 51-70% Pugh Score Dilation: 1-2 cm Pugh Score 's Station: -2 Pugh Score Total: 7 - Exam General: Alert, Oriented, Cooperative Lungs: Clear to Auscultation, Normal Respiratory Effort Cardiovascular: Regular Rate, Regular Rhythm GI/Abdominal Exam: Soft, Non-Tender Genitourinary: Normal external exam Extremities: Normal Inspection Skin: Warm, Dry, Intact - Patient Data Result Diagrams: 10/25/19 07:45 - Problem List (1) 39 weeks gestation of SNOMED Code(s): 47936325 ICD Code: Z3A.39 - 39 WEEKS GESTATION OF Status: Acute Current Visit: Yes Problem List Initiated/Reviewed/Updated: Yes Orders Last 24hrs: Active Orders 24 hr Category Date Time Status Patient Status [ADT] Routine ADT 10/25/19 07:30 Ordered Communication Order [RC] ASDIRECTED Care 10/25/19 07:30 Ordered Communication Order [RC] ASDIRECTED Care 10/25/19 07:30 Ordered Communication Order [RC] ASDIRECTED Care 10/25/19 07:30 Ordered Non Stress Test [RC] PER UNIT ROUTINE Care 10/25/19 07:30 Ordered Notify Provider [RC] ASDIRECTED Care 10/25/19 07:30 Ordered Notify Provider [RC] PRN Care 10/25/19 07:30 Ordered Peripheral IV Care [RC] . DIRECTED Care 10/25/19 07:31 Ordered Vaginal Exam [RC] ASDIRECTED Care 10/25/19 07:30 Ordered Vital Signs [RC] ASDIRECTED Care 10/25/19 07:30 Ordered Regular Diet [DIET] Diet 10/25/19 Breakfast Ordered CBC W/O DIFF,HEMOGRAM [HEME] Routine Lab 10/25/19 07:30 Ordered CORONAVIRUS COVID-19 VIKA [MOLEC] Routine Lab 10/25/19 07:30 Ordered RAPID PLASMA REAGIN,RPR [CHEM] Routine Lab 10/25/19 07:30 Ordered TYPE AND SCREEN [BBK] Routine Lab 10/25/19 07:30 Ordered Lactated Ringers [Ringers, Lactated] 1,000 ml Med 10/25/19 07:30 Ordered IV ASDIRECTED Nalbuphine [Nubain] Med 10/25/19 07:30 Ordered 10 mg IVPUSH Q2H PRN Ondansetron [Zofran] Med 10/25/19 07:30 Ordered 4 mg IVPUSH Q4H PRN Oxytocin/Lactated Ringers [Pitocin in LR 10 Units/1,000 Med 10/25/19 07:30 Ordered ML] 10 unit in 1,000 ml IV .CONTINUOUS Oxytocin/Lactated Ringers [Pitocin in LR 10 Units/1,000 Med 10/25/19 07:30 Ordered ML] 10 unit in 1,000 ml IV TITRATE Promethazine [Phenergan] Med 10/25/19 07:30 Ordered 25 mg PO Q4H PRN Sodium Chloride 0.9% [Saline Flush] Med 10/25/19 07:30 Ordered 10 ml FLUSH ASDIRECTED PRN Electronic Heart Tones Internal [WOMSER] Per Unit Oth 10/25/19 07:30 Ordered Routine Peripheral IV Insertion Adult [OM.PC] Routine Oth 10/25/19 07:30 Ordered Resuscitation Status Routine Resus Stat 10/25/19 07:30 Ordered Assessment/Plan Comment:: * Labs to be done * GBS negative, no need for antibiotics * Pitocin and then AROM * Pain management per patient preference * Anticipate
[2019-10-25] MEDS: Lactated Ringers 1,000 ML IV SCH ×2 (08:15→15:41)
--- NOTE | 2019-10-25 11:43 | PCM.PREANE ---
Preanesthetic Assessment - Procedure Proposed Procedure: Continuous labor epidural - Anesthesia/Transfusion/Family Hx Anesthesia History: Prior Anesthesia Without Reaction Transfusion History: No Prior Transfusion(s) - Review of Systems General: No Symptoms Pulmonary: No Symptoms Cardiovascular: No Symptoms Gastrointestinal: No Symptoms Neurological: No Symptoms Other: Reports: None - Physical Assessment Vital Signs: Last Vital Signs Temp 97.0 F 10/25/19 07:52 Pulse 80 10/25/19 10:00 Resp 16 10/25/19 07:52 BP 108/72 10/25/19 10:00 Pulse Ox Height: 1.63 m Weight: 83.461 kg ASA Class: 2 Mental Status: Alert & Oriented x3 Airway Class: Mallampati = 1 Dentition: Reports: Normal Dentition Thyro-Mental Finger Breadths: 3 Mouth Opening Finger Breadths: 3 ROM/Head Extension: Full Lungs: Clear to Auscultation, Normal Respiratory Effort Cardiovascular: Regular Rate, Regular Rhythm - Lab Values: Laboratory Last Values WBC 5.98 K/mm3 (3.98-10.04) 10/25/19 07:45 RBC 4.06 M/mm3 (3.98-5.22) 10/25/19 07:45 Hgb 12.4 gm/dl (11.2-15.7) D 10/25/19 07:45 Hct 37.3 % (34.1-44.9) 10/25/19 07:45 MCV 91.9 fl (79.4-94.8) 10/25/19 07:45 MCH 30.5 pg (25.6-32.2) 10/25/19 07:45 MCHC 33.2 g/dl (32.2-35.5) 10/25/19 07:45 RDW Std Deviation 45.1 fL (36.4-46.3) 10/25/19 07:45 Plt Count 199 K/mm3 (182-369) 10/25/19 07:45 MPV 10.5 fl (9.4-12.3) 10/25/19 07:45 COVID-19 ([facility]KA) Negative (NEGATIVE) 10/25/19 Unknown Blood Type B POSITIVE 10/25/19 07:45 Gel Antibody Screen Negative 10/25/19 07:45 - Allergies Allergies/Adverse Reactions: Allergies Allergy/AdvReac Type Severity Reaction Status Date / Time No Known Allergies Allergy Verified 07/05/17 09:08 - Acknowledgements Anesthesia Type Planned: Epidural Pt an Appropriate Candidate for the Planned Anesthesia: Yes Alternatives and Risks of Anesthesia Discussed w Pt/Guardian: Yes Pt/Guardian Understands and Agrees with Anesthesia Plan: Yes PreAnesthesia Questionnaire - Past Health History Medical/Surgical History: Denies Medical/Surgical History Gastrointestinal History: Reports: GERD Other Gastrointestinal History: 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 - SUBSTANCE USE Smoking Status *Q: Never Smoker Tobacco Use Within Last Twelve Months: No Recreational Drug Use History: No - HOME MEDS Home Medications: Home Meds Pnv No.95/Ferrous Fum/Folic AC [ Tablet] 1 tab PO DAILY 07/05/17 [History] Acetaminophen [Tylenol] 650 mg PO Q6H PRN tablet 07/06/17 [Rx] Benzocaine/Menthol [Dermoplast Pain Relief [place]] 1 spray TOP ASDIRECTED PRN canister 07/06/17 [Rx] Docusate Sodium [Colace] 100 mg PO BID PRN cap 07/06/17 [Rx] Hydrocortisone Acetate [Anucort-HC] 25 mg RECTAL BID PRN supp 07/06/17 [Rx] Ibuprofen [IJD: Ibuprofen] 600 mg PO Q6H PRN tablet 07/06/17 [Rx] Lanolin [Lansinoh HPA] 1 applic TOP ASDIRECTED PRN tube 07/06/17 [Rx] Magnesium Hydroxide [Milk of Magnesia] 30 ml PO BEDTIME PRN cup 07/06/17 [Rx] - CURRENT (IN HOUSE) MEDS Current Meds: Current Medications Oxytocin/Lactated Ringer's (Pitocin In Lr 10 Units/1,000 Ml) 10 unit in 1,000 mls @ 12 mls/hr IV TITRATE GABRIEL; Protocol Last Titration: 10/25/19 11:20 Dose: 12 munits/min, 72 mls/hr Documented by: Oxytocin/Lactated Ringer's (Pitocin In Lr 10 Units/1,000 Ml) 10 unit in 1,000 mls @ 500 mls/hr IV .CONTINUOUS GABRIEL Lactated Ringer's (Ringers, Lactated) 1,000 mls @ 40 mls/hr IV ASDIRECTED GABRIEL Last Admin: 10/25/19 08:15 Dose: 40 mls/hr Documented by: Nalbuphine HCl (Nubain) 10 mg IVPUSH Q2H PRN PRN Reason: Pain Ondansetron HCl (Zofran) 4 mg IVPUSH Q4H PRN PRN Reason: Nausea/Vomiting Promethazine HCl (Phenergan) 25 mg PO Q4H PRN PRN Reason: Nausea/Vomiting Sodium Chloride (Saline Flush) 10 ml FLUSH ASDIRECTED PRN PRN Reason: Keep Vein Open
[2019-10-25] MEDS ORDERED: Bupivacaine/fentaNYL/NS 100 ML Bag EPIDUR PRN (11:50)
[2019-10-25] MEDS ORDERED: fentaNYL 100 MCG/2 ML SDV EPIDUR PRN (11:50)
[2019-10-25] MEDS ORDERED: diphenhydrAMINE 50 MG/ML SDV IVPUSH PRN (11:50)
[2019-10-25] MEDS ORDERED: ePHEDrine 50 MG/ML SDV IVPUSH PRN (11:50)
--- NOTE | 2019-10-25 19:12 | PCM.DEL ---
L & D Note - General Info Date of Service: 10/25/19 - Delivery Note Labor: Spontaneous Delivery Outcome: Livebirth Delivery Method: Spontaneous Vaginal Delivery-Single Delivery Mode: Spontaneous Presentation: Left Occiput Anterior (MICHELLE) Nuchal Cord: None Anesthesia Type: Epidural Amniotic Fluid Description: Clear Episiotomy Type: None Laceration: None Placenta: Intact, Spontaneous Cord: 3 Vessels Estimated Blood Loss: 200 Resuscitation Needed: Yes Gaston: Bulb Syringe, Stimulated, Warmed, [place] Used, Warmer Used Delivery Comments (Free Text/Narrative):: Patient found to be complete and began pushing. With maternal pushing effort head delivered from an MICHELLE presentation. No nuchal cord present. With gentle downward traction the shoulders and body delivered. Infant placed on maternal abdomen. Cord clamped and cut. Cord blood obtained. Placenta allowed time to separate and expelled intact. Inspection of perineum showed no lacerations - General Info Date of Service: 10/25/19 - Patient Data Vitals - Most Recent: Last Vital Signs Temp 36.1 C 10/25/19 07:52 Pulse 109 H 10/25/19 16:31 Resp 16 10/25/19 07:52 BP 97/69 10/25/19 16:31 Pulse Ox 100 10/25/19 15:30 Weight - Most Recent: 83.461 kg I&O - Last 24 Hours: Intake & Output 10/25/19 10/25/19 10/25/19 06:59 14:59 22:59 Intake Total 1970 Balance 1970 Lab Results Last 24 Hours: Laboratory Results - last 24 hr 10/25/19 10/25/19 10/25/19 Range/Units 07:45 07:45 Unknown WBC 5.98 (3.98-10.04) K/mm3 RBC 4.06 (3.98-5.22) M/mm3 Hgb 12.4 D (11.2-15.7) gm/dl Hct 37.3 (34.1-44.9) % MCV 91.9 (79.4-94.8) fl MCH 30.5 (25.6-32.2) pg MCHC 33.2 (32.2-35.5) g/dl RDW Std Deviation 45.1 (36.4-46.3) fL Plt Count 199 (182-369) K/mm3 MPV 10.5 (9.4-12.3) fl COVID-19 ([facility]) Negative (NEGATIVE) Blood Type B POSITIVE Gel Antibody Screen Negative Med Orders - Current: Current Medications Diphenhydramine HCl (Benadryl) 25 mg IVPUSH Q6H PRN PRN Reason: pruritis Ephedrine Sulfate (Ephedrine Sulfate) 5 mg IVPUSH ASDIRECTED PRN PRN Reason: Hypotension Fentanyl (Sublimaze) 100 mcg EPIDUR Q3H PRN PRN Reason: Pain Last Admin: 10/25/19 15:17 Dose: 100 mcg Documented by: Fentanyl/Bupivacaine HCl (Fentanyl/Bupivacaine/Ns 2 Mcg-0.125% 100 Ml) 100 ml EPIDUR ASDIRECTED PRN PRN Reason: Pain Last Admin: 10/25/19 15:18 Dose: 100 ml Documented by: Oxytocin/Lactated Ringer's (Pitocin In Lr 10 Units/1,000 Ml) 10 unit in 1,000 mls @ 12 mls/hr IV TITRATE GABRIEL; Protocol Last Titration: 10/25/19 18:57 Dose: 83.33 munits/min, 499.98 mls/hr Documented by: Oxytocin/Lactated Ringer's (Pitocin In Lr 10 Units/1,000 Ml) 10 unit in 1,000 mls @ 500 mls/hr IV .CONTINUOUS GABRIEL Lactated Ringer's (Ringers, Lactated) 1,000 mls @ 40 mls/hr IV ASDIRECTED GABRIEL Last Admin: 10/25/19 15:41 Dose: 125 mls/hr Documented by: Nalbuphine HCl (Nubain) 10 mg IVPUSH Q2H PRN PRN Reason: Pain Ondansetron HCl (Zofran) 4 mg IVPUSH Q4H PRN PRN Reason: Nausea/Vomiting Last Admin: 10/25/19 14:05 Dose: 4 mg Documented by: Promethazine HCl (Phenergan) 25 mg PO Q4H PRN PRN Reason: Nausea/Vomiting Sodium Chloride (Saline Flush) 10 ml FLUSH ASDIRECTED PRN PRN Reason: Keep Vein Open - Problem List & Annotations (1) 39 weeks gestation of SNOMED Code(s): 67958754 Code(s): Z3A.39 - 39 WEEKS GESTATION OF Status: Acute Current Visit: Yes (2) Vaginal delivery SNOMED Code(s): 997204840 Code(s): O80 - ENCOUNTER FOR FULL-TERM UNCOMPLICATED DELIVERY Status: Acute Current Visit: No - Problem List Review Problem List Initiated/Reviewed/Updated: Yes - My Orders Last 24 Hours: My Active Orders 10/25/19 Breakfast Regular Diet [DIET] 10/25/19 07:30 Patient Status [ADT] Routine Communication Order [RC] ASDIRECTED Communication Order [RC] ASDIRECTED Communication Order [RC] ASDIRECTED Non Stress Test [RC] PER UNIT ROUTINE Notify Provider [RC] ASDIRECTED Notify Provider [RC] PRN Vaginal Exam [RC] ASDIRECTED Vital Signs [RC] ASDIRECTED Lactated Ringers [Ringers, Lactated] 1,000 ml IV ASDIRECTED Nalbuphine [Nubain] 10 mg IVPUSH Q2H PRN Ondansetron [Zofran] 4 mg IVPUSH Q4H PRN Oxytocin/Lactated Ringers [Pitocin in LR 10 Units/1,000 ML] 10 unit in 1,000 ml IV .CONTINUOUS Oxytocin/Lactated Ringers [Pitocin in LR 10 Units/1,000 ML] 10 unit in 1,000 ml IV TITRATE Promethazine [Phenergan] 25 mg PO Q4H PRN Sodium Chloride 0.9% [Saline Flush] 10 ml FLUSH ASDIRECTED PRN Electronic Heart Tones Internal [WOMSER] Per Unit Routine Peripheral IV Insertion Adult [OM.PC] Routine Resuscitation Status Routine 10/25/19 07:31 Peripheral IV Care [RC] Q2HR 10/25/19 07:45 RAPID PLASMA REAGIN,RPR [CHEM] Routine 10/25/19 09:41 PATIENT RETYPE [BBK] Routine 10/25/19 16:53 Urinary Catheter Assessment [RC] ASDIRECTED 10/25/19 17:00 Insert Casiano Catheter [Insert Urinary Catheter] [OM.PC] Q24H - Assessment Assessment:: PPD#0 - Plan Plan:: * Routine cares * Breast feeding * Discharge home in 1-2 days
[2019-10-25] MEDS ORDERED: Witch Hazel Medicated Pads 40/Jar TOP PRN (19:26)
[2019-10-25] MEDS ORDERED: Docusate Sodium 100 MG Cap PO PRN (19:26)
[2019-10-25] MEDS ORDERED: Benzocaine/Menthol 20%-0.5% Spray 56 GM Canister TOP PRN (19:26)
[2019-10-25] MEDS ORDERED: Acetaminophen 325 MG Tab PO PRN (19:26)
[2019-10-25] MEDS: Ibuprofen 600 MG Tab PO PRN (20:25)
[2019-10-26] MEDS ORDERED: Lidocaine 1.5% with EPINEPHrine 1:200,000 5 ML Amp ONE
[2019-10-26] MEDS: Ibuprofen 600 MG Tab PO PRN ×2 (03:39→10:03)
--- NOTE | 2019-10-26 04:54 | PCM.PNPP ---
- General Info Date of Service: 10/26/19 Functional Status: Reports: Pain Controlled, Tolerating Diet, Ambulating, Urinating - Review of Systems General: Reports: No Symptoms Pulmonary: Reports: No Symptoms Cardiovascular: Reports: No Symptoms Gastrointestinal: Reports: No Symptoms Genitourinary: Reports: No Symptoms Musculoskeletal: Reports: No Symptoms Neurological: Reports: No Symptoms - General Info Date of Service: 10/26/19 - Patient Data Vital Signs - Most Recent: Last Vital Signs Temp 36.5 C 10/26/19 03:37 Pulse 77 10/26/19 03:37 Resp 14 10/26/19 03:37 BP 103/58 L 10/26/19 03:37 Pulse Ox 97 10/26/19 03:37 Weight - Most Recent: 83.461 kg I&O - Last 24 Hours: Intake & Output 10/25/19 10/25/19 10/26/19 14:59 22:59 06:59 Intake Total 3970 Balance 3970 Lab Results - Last 24 Hours: Laboratory Results - last 24 hr 10/25/19 10/25/19 10/25/19 Range/Units 07:45 07:45 07:45 WBC 5.98 (3.98-10.04) K/mm3 RBC 4.06 (3.98-5.22) M/mm3 Hgb 12.4 D (11.2-15.7) gm/dl Hct 37.3 (34.1-44.9) % MCV 91.9 (79.4-94.8) fl MCH 30.5 (25.6-32.2) pg MCHC 33.2 (32.2-35.5) g/dl RDW Std Deviation 45.1 (36.4-46.3) fL Plt Count 199 (182-369) K/mm3 MPV 10.5 (9.4-12.3) fl RPR Non-reactive (NONREACTIVE) COVID-19 ([facility]) (NEGATIVE) Blood Type B POSITIVE Gel Antibody Screen Negative 10/25/19 Range/Units Unknown WBC (3.98-10.04) K/mm3 RBC (3.98-5.22) M/mm3 Hgb (11.2-15.7) gm/dl Hct (34.1-44.9) % MCV (79.4-94.8) fl MCH (25.6-32.2) pg MCHC (32.2-35.5) g/dl RDW Std Deviation (36.4-46.3) fL Plt Count (182-369) K/mm3 MPV (9.4-12.3) fl RPR (NONREACTIVE) COVID-19 ([facility]) Negative (NEGATIVE) Blood Type Gel Antibody Screen Med Orders - Current: Current Medications Acetaminophen (Tylenol) 650 mg PO Q4H PRN PRN Reason: mild pain or fever Benzocaine/Menthol (Dermoplast Pain Relief [place]) 0 gm TOP ASDIRECTED PRN PRN Reason: Perineal Comfort Measure Last Admin: 10/25/19 20:24 Dose: 1 applic Documented by: Docusate Sodium (Colace) 100 mg PO BID PRN PRN Reason: Constipation Ibuprofen (Motrin) 600 mg PO Q6H PRN PRN Reason: Mild pain or fever Last Admin: 10/26/19 03:39 Dose: 600 mg Documented by: Flor Choi) 1 pad TOP ASDIRECTED PRN PRN Reason: Perineal Comfort Measure Last Admin: 10/25/19 20:24 Dose: 1 applic Documented by: Discontinued Medications Diphenhydramine HCl (Benadryl) 25 mg IVPUSH Q6H PRN PRN Reason: pruritis Ephedrine Sulfate (Ephedrine Sulfate) 5 mg IVPUSH ASDIRECTED PRN PRN Reason: Hypotension Fentanyl (Sublimaze) 100 mcg EPIDUR Q3H PRN PRN Reason: Pain Last Admin: 10/25/19 15:17 Dose: 100 mcg Documented by: Fentanyl/Bupivacaine HCl (Fentanyl/Bupivacaine/Ns 2 Mcg-0.125% 100 Ml) 100 ml EPIDUR ASDIRECTED PRN PRN Reason: Pain Last Admin: 10/25/19 15:18 Dose: 100 ml Documented by: Oxytocin/Lactated Ringer's (Pitocin In Lr 10 Units/1,000 Ml) 10 unit in 1,000 mls @ 12 mls/hr IV TITRATE GABRIEL; Protocol Last Titration: 10/25/19 18:57 Dose: 83.33 munits/min, 499.98 mls/hr Documented by: Oxytocin/Lactated Ringer's (Pitocin In Lr 10 Units/1,000 Ml) 10 unit in 1,000 mls @ 500 mls/hr IV .CONTINUOUS GABRIEL Last Admin: 10/25/19 19:00 Dose: 500 mls/hr Documented by: Lactated Ringer's (Ringers, Lactated) 1,000 mls @ 40 mls/hr IV ASDIRECTED GABRIEL Last Admin: 10/25/19 15:41 Dose: 125 mls/hr Documented by: Nalbuphine HCl (Nubain) 10 mg IVPUSH Q2H PRN PRN Reason: Pain Ondansetron HCl (Zofran) 4 mg IVPUSH Q4H PRN PRN Reason: Nausea/Vomiting Last Admin: 10/25/19 14:05 Dose: 4 mg Documented by: Promethazine HCl (Phenergan) 25 mg PO Q4H PRN PRN Reason: Nausea/Vomiting Sodium Chloride (Saline Flush) 10 ml FLUSH ASDIRECTED PRN PRN Reason: Keep Vein Open - Interaction Disposition, : in Room with Family Infant Interaction: Holding Infant Infant Feeding: Breastfed Infant; Nursed Well Support Person: - Recovery Exam Fundal Tone: Firm Fundal Level: At Umbilicus Fundal Placement: Midline Lochia Amount: Small Lochia Color: Rubra/Red Perineum Description: Intact, Minimal Bruising/Swelling Bladder Status: Voiding - Exam General: Alert, Oriented, Cooperative Lungs: Clear to Auscultation, Normal Respiratory Effort Cardiovascular: Regular Rate, Regular Rhythm GI/Abdominal Exam: Soft, Non-Tender Extremities: Normal Inspection Skin: Warm, Dry, Intact - Problem List & Annotations (1) 39 weeks gestation of SNOMED Code(s): 44621135 Code(s): Z3A.39 - 39 WEEKS GESTATION OF Status: Acute Current Visit: Yes (2) Vaginal delivery SNOMED Code(s): 359919049 Code(s): O80 - ENCOUNTER FOR FULL-TERM UNCOMPLICATED DELIVERY Status: Acute Current Visit: No - Problem List Review Problem List Initiated/Reviewed/Updated: Yes - My Orders Last 24 Hours: My Active Orders 10/25/19 07:30 Resuscitation Status Routine 10/25/19 Dinner Regular Diet [DIET] 10/25/19 19:26 Acetaminophen [Tylenol] 650 mg PO Q4H PRN Benzocaine/Menthol [Dermoplast Pain Relief [place]] See Dose Instructions TOP ASDIRECTED PRN Docusate Sodium [Colace] 100 mg PO BID PRN Ibuprofen [Motrin] 600 mg PO Q6H PRN witch Rahul [Tucks] 1 pad TOP ASDIRECTED PRN Heat Therapy [OM.PC] PRN 10/25/19 19:26 Activity as Tolerated [RC] PER UNIT ROUTINE Vital Signs [RC] 03,09,15,21 Assess Lochia [WOMSER] Per Unit Routine Assess Uterine Involution [WOMSER] Per Unit Routine Breast Pump [WOMSER] Per Unit Routine Ice Therapy [OM.PC] Per Unit Routine Perineal Care [OM.PC] Per Unit Routine Peripheral IV Discontinue [OM.PC] Routine Sitz Bath [OM.PC] Per Unit Routine 10/26/19 19:26 Heat Therapy [OM.PC] PRN - Assessment Assessment:: PPD#1 - Plan Plan:: * Routine cares * Breast feeding * Discharge home today
--- NOTE | 2019-10-26 04:56 | PCM.DCSUM1 ---
Discharge Summary - Discharge Data Discharge Date: 10/26/19 Discharge Disposition: Home, Self-Care 01 Condition: Good - Referral to Home Health Primary Care Physician: Ronda Mcknight MD - Discharge Diagnosis/Problem(s) (1) 39 weeks gestation of SNOMED Code(s): 98392398 ICD Code: Z3A.39 - 39 WEEKS GESTATION OF Status: Acute Current Visit: Yes (2) Vaginal delivery SNOMED Code(s): 561715770 ICD Code: O80 - ENCOUNTER FOR FULL-TERM UNCOMPLICATED DELIVERY Status: Acute Current Visit: No - Patient Summary/Data Complications: None Consults: None Recommended Follow-up Testing/Procedures: Follow up in 3 weeks for check Hospital Course: 28 y/o at 39 2/7 wks who presented for IOL. Done with pitocin and AROM. Progressed well and underwent an uncomplicated . See delivery note. did well and was discharged home on PPD#1 - Patient Instructions Diet: Regular Diet as Tolerated Activity: As Tolerated Activity, Other: Pelvic rest for 6 weeks Driving: May Drive Today Showering/Bathing: May Shower Showering/Bathing, Other: May bathe Notify Provider of: Fever, Increased Pain, Swelling and Redness, Drainage, Nausea and/or Vomiting - Discharge Plan *PRESCRIPTION DRUG MONITORING PROGRAM REVIEWED*: No *COPY OF PRESCRIPTION DRUG MONITORING REPORT IN PATIENT PHILIP: No Home Medications: Home Meds Pnv No.95/Ferrous Fum/Folic AC [ Tablet] 1 tab PO DAILY 07/05/17 [History] Acetaminophen [Tylenol] 650 mg PO Q6H PRN tablet 07/06/17 [Rx] Docusate Sodium [Colace] 100 mg PO BID PRN cap 07/06/17 [Rx] Ibuprofen [IJD: Ibuprofen] 600 mg PO Q6H PRN tablet 07/06/17 [Rx] Referrals: Ronda Mcknight MD [Primary Care Provider] - (3 weeks for check ) - Discharge Summary/Plan Comment DC Time >30 min.: No - Patient Data Vitals - Most Recent: Last Vital Signs Temp 36.5 C 10/26/19 03:37 Pulse 77 10/26/19 03:37 Resp 14 10/26/19 03:37 BP 103/58 L 10/26/19 03:37 Pulse Ox 97 10/26/19 03:37 Weight - Most Recent: 83.461 kg I&O - Last 24 hours: Intake & Output 10/25/19 10/25/19 10/26/19 14:59 22:59 06:59 Intake Total 3970 Balance 3970 Lab Results - Last 24 hrs: Laboratory Results - last 24 hr 10/25/19 10/25/19 10/25/19 Range/Units 07:45 07:45 07:45 WBC 5.98 (3.98-10.04) K/mm3 RBC 4.06 (3.98-5.22) M/mm3 Hgb 12.4 D (11.2-15.7) gm/dl Hct 37.3 (34.1-44.9) % MCV 91.9 (79.4-94.8) fl MCH 30.5 (25.6-32.2) pg MCHC 33.2 (32.2-35.5) g/dl RDW Std Deviation 45.1 (36.4-46.3) fL Plt Count 199 (182-369) K/mm3 MPV 10.5 (9.4-12.3) fl RPR Non-reactive (NONREACTIVE) COVID-19 ([facility]) (NEGATIVE) Blood Type B POSITIVE Gel Antibody Screen Negative 10/25/19 Range/Units Unknown WBC (3.98-10.04) K/mm3 RBC (3.98-5.22) M/mm3 Hgb (11.2-15.7) gm/dl Hct (34.1-44.9) % MCV (79.4-94.8) fl MCH (25.6-32.2) pg MCHC (32.2-35.5) g/dl RDW Std Deviation (36.4-46.3) fL Plt Count (182-369) K/mm3 MPV (9.4-12.3) fl RPR (NONREACTIVE) COVID-19 ([facility]) Negative (NEGATIVE) Blood Type Gel Antibody Screen Med Orders - Current: Current Medications Acetaminophen (Tylenol) 650 mg PO Q4H PRN PRN Reason: mild pain or fever Benzocaine/Menthol (Dermoplast Pain Relief [place]) 0 gm TOP ASDIRECTED PRN PRN Reason: Perineal Comfort Measure Last Admin: 10/25/19 20:24 Dose: 1 applic Documented by: Docusate Sodium (Colace) 100 mg PO BID PRN PRN Reason: Constipation Ibuprofen (Motrin) 600 mg PO Q6H PRN PRN Reason: Mild pain or fever Last Admin: 10/26/19 03:39 Dose: 600 mg Documented by: Flor Jay (Beto) 1 pad TOP ASDIRECTED PRN PRN Reason: Perineal Comfort Measure Last Admin: 10/25/19 20:24 Dose: 1 applic Documented by: Discontinued Medications Diphenhydramine HCl (Benadryl) 25 mg IVPUSH Q6H PRN PRN Reason: pruritis Ephedrine Sulfate (Ephedrine Sulfate) 5 mg IVPUSH ASDIRECTED PRN PRN Reason: Hypotension Fentanyl (Sublimaze) 100 mcg EPIDUR Q3H PRN PRN Reason: Pain Last Admin: 10/25/19 15:17 Dose: 100 mcg Documented by: Fentanyl/Bupivacaine HCl (Fentanyl/Bupivacaine/Ns 2 Mcg-0.125% 100 Ml) 100 ml EPIDUR ASDIRECTED PRN PRN Reason: Pain Last Admin: 10/25/19 15:18 Dose: 100 ml Documented by: Oxytocin/Lactated Ringer's (Pitocin In Lr 10 Units/1,000 Ml) 10 unit in 1,000 mls @ 12 mls/hr IV TITRATE GABRIEL; Protocol Last Titration: 10/25/19 18:57 Dose: 83.33 munits/min, 499.98 mls/hr Documented by: Oxytocin/Lactated Ringer's (Pitocin In Lr 10 Units/1,000 Ml) 10 unit in 1,000 mls @ 500 mls/hr IV .CONTINUOUS GABRIEL Last Admin: 10/25/19 19:00 Dose: 500 mls/hr Documented by: Lactated Ringer's (Ringers, Lactated) 1,000 mls @ 40 mls/hr IV ASDIRECTED GABRIEL Last Admin: 10/25/19 15:41 Dose: 125 mls/hr Documented by: Nalbuphine HCl (Nubain) 10 mg IVPUSH Q2H PRN PRN Reason: Pain Ondansetron HCl (Zofran) 4 mg IVPUSH Q4H PRN PRN Reason: Nausea/Vomiting Last Admin: 10/25/19 14:05 Dose: 4 mg Documented by: Promethazine HCl (Phenergan) 25 mg PO Q4H PRN PRN Reason: Nausea/Vomiting Sodium Chloride (Saline Flush) 10 ml FLUSH ASDIRECTED PRN PRN Reason: Keep Vein Open
== END 2019-10-26 19:35 | disposition home or self-care (01) | DRG 560 ==
LOC: JD.OB 07:09 → OBSVTOIN 18:56 → JD.OB 18:57 → EDSTATUS 10-30 07:07
PROVIDERS: ADMIT Obstetrics & Gynecology; ATTEND Obstetrics & Gynecology
PROC: 10E0XZZ Delivery of Products of Conception, External Approach (ICD-10-PCS; principal; 2019-10-25)
PROC: 10907ZC Drainage of Amniotic Fluid, Therapeutic from Products of Conception, Via Natural or Artificial Opening (ICD-10-PCS; 2019-10-25)
PROC: 3E033VJ Introduction of Other Hormone into Peripheral Vein, Percutaneous Approach (ICD-10-PCS; 2019-10-25)
PROC: 3E0R3BZ Introduction of Anesthetic Agent into Spinal Canal, Percutaneous Approach (ICD-10-PCS; 2019-10-25)
DX: O80 Encounter for full-term uncomplicated delivery (principal); Z3A.39 39 weeks gestation of pregnancy; Z37.0 Single live birth; Z11.59 Encounter for screening for other viral diseases
CPT/HCPCS: 36415; 51702; 59025; 59409; 85027; 86592; 86850; 86900; 86901; A9270-GY; J2405; J2590; J3010; J7120; U0002